=== PATIENT | female | born 1970 | race Caucasian/White ===

== ENCOUNTER 2016-07-09 10:28 | Emergency (ER) | payer BC, OTHER ==
[~2016-07-09] VITALS: Ht 162.6 cm; Wt 99.8 kg
[2016-07-09 10:47] VITALS: BP 141/84
--- NOTE | 2016-07-09 10:47 | NUR ---
PATIENT BIB WHEELCHAIR TO BED ER BED 2.
[2016-07-09] MEDS ORDERED: PROTONIX20 MG (10:54)
[2016-07-09] MEDS ORDERED: COMBIVENT MDI14.7 GM (10:54)
[2016-07-09] MEDS ORDERED: TYLENOL #3 300/1 TAB (10:54)
[2016-07-09] MEDS ORDERED: RANITIDINE 150150 MG (10:54)
[2016-07-09] MEDS ORDERED: ZANAFLEX CAPSULE2 MG (10:54)
[2016-07-09] MEDS ORDERED: CITALOPRAM10 MG (10:54)
[2016-07-09] MEDS ORDERED: ZYBAN150 MG (10:54)
[2016-07-09] MEDS ORDERED: TOLTERODINE TART2 M1 (10:54)
[2016-07-09] MEDS ORDERED: ZOVIRAX200 MG (10:54)
[2016-07-09] MEDS ORDERED: WELLBUTRIN XL300 MG (10:54)
[2016-07-09] MEDS ORDERED: SOMA250 MG (10:54)
[2016-07-09] MEDS ORDERED: HYDROXYZINE10 MG (10:54)
[2016-07-09] MEDS ORDERED: DITROPAN XL5 MG (10:54)
--- NOTE | 2016-07-09 10:57 | NUR ---
PATIENT PRESENTS TO ED WITH PT PRESENTS TO ER W/C/O LEFT KNEE PAIN X1 WEEK. HX TORN MENISCUS, AWAITING AUTHORIZATION FOR SURGERY, GERD, DEPRESSION, ANXIETY, ASTHMA. DENIES N/V/D; SKIN IS PINK/WARM/DRY; AAOX4; LUNGS CLEAR BL; HR EVEN AND REGULAR; PT DENIES ANY FEVER, CP, SOB, OR COUGH AT THIS TIME; PATIENT STATES PAIN OF 8/10 AT THIS TIME; VSS; PATIENT POSITIONED FOR COMFORT; HOB ELEVATED; BEDRAILS UP X2; BED DOWN. ER MD MADE AWARE OF PT STATUS.
--- NOTE | 2016-07-09 11:12 | NUR ---
Patient being evaluated by physician at bedside.
[2016-07-09] MEDS ORDERED: KETOROLAC 60 MG/2 ML VIAL IM ONE (11:20)
[2016-07-09 11:39] VITALS: BP 133/80
--- NOTE | 2016-07-09 11:39 | NUR ---
Patient discharged with v/s stable. Written and verbal after care instructions given and explained. Patient alert, oriented and verbalized understanding of instructions. Wheel Chair Assisted with to car. All questions addressed prior to discharge. ID band removed. Patient advised to follow up with PMD. Rx of TRAMADOL AND MOTRIN given. Patient educated on indication of medication including possible reaction and side effects. Opportunity to ask questions provided and answered.
== END 2016-07-09 11:39 | disposition home or self-care (01) ==
LOC: MED 10:28
DX: S76.112A Strain of left quadriceps muscle, fascia and tendon, initial encounter (principal); Z88.8 Allergy status to other drugs, medicaments and biological substances; Z79.899 Other long term (current) drug therapy; X58.XXXA Exposure to other specified factors, initial encounter; Y93.01 Activity, walking, marching and hiking; Y92.89 Other specified places as the place of occurrence of the external cause; Y99.8 Other external cause status
CPT/HCPCS: 73562; 96372; 99284; J1885; Q0092